=== PATIENT | female | born 1975 | race Caucasian/White ===

== ENCOUNTER 2018-07-11 21:20 | Emergency (ER) | payer BC, MEDICAID ==
[~2018-07-11] VITALS: Ht 167.6 cm; Wt 58.1 kg
[2018-07-11 21:23] VITALS: BP 127/79
--- NOTE | 2018-07-11 21:30 | NUR ---
MD AT BEDSIDE FOR EVALUATION
[2018-07-11] MEDS ORDERED: IBUPROFEN 600 MG TABLET PO ONE (21:35)
[2018-07-11] MEDS: IBUPROFEN 600 MG TABLET PO ONE (21:36)
== END 2018-07-11 21:39 | disposition home or self-care (01) ==
LOC: ER 21:22
DX: L02.31 Cutaneous abscess of buttock (principal)
CPT/HCPCS: A4606; Z7610